=== PATIENT | female | born 1950 | race Caucasian/White ===

== ENCOUNTER 2016-11-10 16:15 | Emergency (ER) | payer OTHER, MEDICAID ==
[2016-11-10 16:24] VITALS: BMI 30.7
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
--- NOTE | 2016-11-10 18:52 | CT ---
HISTORY: Severe headaches since Sunday Study: CT brain without contrast Comparison: None Technique: Multiple axial images of the brain were obtained from the skull base to the vertex without administr ation of IV contrast. Dose reduction techniques including Automated Exposure Control (AEC) and adju stment of mA and kV were utilized. Findings: There is transcortical low attenuation seen in the right occipital lobe suggesting evolving infarcti on. No evidence of hemorrhage, midline shift or mass effect. There is mild cerebral volume loss. Mil d low-attenuation changes in the periventricular white matter likely reflecting microvascular diseas e. IMPRESSION: 1. Transcortical low attenuation changes in the right occipital lobe suggesting evolving infarction which may be subacute nature given the history. No evidence of hemorrhage. Correlation with MRI joe mmended. Reported By:
[2016-11-10 20:09] VITALS: BP 158/75
== END 2016-11-10 20:30 | disposition short-term general hospital (02) ==
LOC: ER 16:33
PROC: 0T9B70Z Drainage of Bladder with Drainage Device, Via Natural or Artificial Opening (ICD-10-PCS; principal; 2016-11-10)
DX: I63.9 Cerebral infarction, unspecified (principal); R51 Headache
CPT/HCPCS: 51702; 70450; 96365; 99283; 99285; 99291; A4222